=== PATIENT | female | born 1990 | race Caucasian/White ===

== ENCOUNTER 2017-10-24 05:29 | Day surgery (SDC) | payer BC ==
[~2017-10-24] VITALS: Ht 171.4 cm; Wt 106.0 kg
[2017-10-24] MEDS ORDERED: LIDOCAINE 1%, 2ML ONE (06:09)
[2017-10-24] MEDS ORDERED: PREN1TAB28 PO (06:33)
[2017-10-24] MEDS ORDERED: METF500T4 PO (06:33)
[2017-10-24 06:34] VITALS: BP 123/85
[2017-10-24] MEDS ORDERED: LACTATED RINGERS 1,000 ML IV SCH (06:34)
[2017-10-24] MEDS ORDERED: DEXAMETHASONE 4 MG/ML, 1ML ONE (06:37)
[2017-10-24] MEDS ORDERED: PROPOFOL 10 MG/ML, 20ML ONE (06:37)
[2017-10-24] MEDS ORDERED: ONDANSETRON 2MG/ML, 2ML ONE (06:37)
[2017-10-24] MEDS ORDERED: MIDAZOLAM 1 MG/ML, 2ML ONE (06:37)
[2017-10-24] MEDS ORDERED: SUCCINYLCHOLINE 20 MG/ML, 10ML ONE (06:37)
[2017-10-24] MEDS ORDERED: FENTANYL PF 100 MCG/2ML ONE (06:37)
[2017-10-24] MEDS ORDERED: SODIUM CHLORIDE 0.9% 100 ML ONE (06:50)
[2017-10-24] MEDS ORDERED: MISOPROSTOL 200 MCG TABLET ONE (06:50)
[2017-10-24] MEDS ORDERED: OXYTOCIN 10 UNITS/ML, 1ML ONE (06:50)
[2017-10-24] MEDS ORDERED: VASOPRESSIN 20 UNIT/ML, 1ML ONE (06:51)
[2017-10-24] MEDS ORDERED: METHYLERGONOVINE 0.2 MG/ML IM ONE (06:51)
[2017-10-24] MEDS ORDERED: LIDOCAINE 1%, 2ML SQ PRN (07:00)
[2017-10-24] MEDS ORDERED: CEFAZOLIN 1,000 MG ONE (07:34)
[2017-10-24 07:40] LABS: HEMATOCRIT 38.9 % (34.6-47.8); HEMOGLOBIN 13.2 g/dL (11.7-16.4)
[2017-10-24] MEDS ORDERED: LORazepam 2 MG/ML, 1ML IVPush PRN (08:30)
[2017-10-24] MEDS ORDERED: ALBUTEROL SULFATE 2.5 MG/3 ML NPPB PRN (08:30)
[2017-10-24] MEDS ORDERED: LABETALOL 5MG/ML, 20ML IV PRN (08:30)
[2017-10-24] MEDS ORDERED: MEPERIDINE/PF 25MG/0.5ML IVPush PRN (08:30)
[2017-10-24] MEDS ORDERED: MIDAZOLAM 1 MG/ML, 2ML IV PRN (08:30)
[2017-10-24] MEDS ORDERED: ONDANSETRON 2MG/ML, 2ML IVPush PRN (08:30)
[2017-10-24] MEDS ORDERED: OXYcodone 5 MG/5 ML ORAL.SOL UDC PO PRN (08:30)
[2017-10-24] MEDS ORDERED: FENTANYL PF 100 MCG/2ML IV PRN (08:30)
[2017-10-24] MEDS ORDERED: EPHEDRINE 50 MG/ML, 1ML IVPush PRN (08:30)
[2017-10-24] MEDS ORDERED: PROMETHAZINE 25 MG/ML, 1ML IV PRN (08:30)
[2017-10-24] MEDS ORDERED: HYDROmorphone 1 MG/ML, 1ML IV PRN (08:30)
[2017-10-24 08:38] VITALS: BP 124/74
== END 2017-10-24 11:50 ==
LOC: OUT 05:29
PROVIDERS: ATTEND Obstetrics & Gynecology
DX: O02.1 Missed abortion (principal); Z3A.12 12 weeks gestation of pregnancy; Z83.3 Family history of diabetes mellitus
CPT/HCPCS: 36415; 59820; 81003; 85025; 86850; 86870; 86900; 88305; J0330; J0690; J1100; J2250; J2405; J2704; J2790; J3010; J2210; J2590